=== PATIENT | male | born 1940 | race Caucasian/White ===

== ENCOUNTER → 2016-09-19 | Outpatient (CLI) | payer MEDICARE, MEDICAID ==
[~2016-09-19] MED LIST: ALBU8.5H IH; ASPI-1061 PO; BECL8.7A6 IH; CELE100 PO; CEPH500 PO; CLON2 PO; CLOP75 PO; GABA-533 PO; IPRAHFA IH; OXYB5 PO; SANTO TP
[2016-09-19 09:24] VITALS: BP 116/68
== END | disposition home or self-care (01) ==
LOC: HBOWC 08:19
PROVIDERS: ATTEND Emergency Medicine
DX: L97.429 Non-pressure chronic ulcer of left heel and midfoot with unspecified severity (principal); I77.2 Rupture of artery; I73.9 Peripheral vascular disease, unspecified

== ENCOUNTER → 2016-10-11 | Outpatient (CLI) | payer MEDICARE, MEDICAID ==
[2016-10-11 09:03] VITALS: BP 98/61
== END | disposition home or self-care (01) ==
LOC: HBOWC 08:00
PROVIDERS: ATTEND Emergency Medicine
DX: I70.244 Atherosclerosis of native arteries of left leg with ulceration of heel and midfoot (principal); L89.624 Pressure ulcer of left heel, stage 4; I73.9 Peripheral vascular disease, unspecified; B35.1 Tinea unguium; Z72.89 Other problems related to lifestyle; F17.210 Nicotine dependence, cigarettes, uncomplicated
CPT/HCPCS: 97597

== ENCOUNTER → 2016-10-24 | Outpatient (CLI) | payer MEDICARE, MEDICAID ==
[~2016-10-24] MED LIST changes: -CEPH500 PO; -SANTO TP
[2016-10-24 09:14] VITALS: BP 120/65
== END | disposition home or self-care (01) ==
LOC: HBOWC 08:49
PROVIDERS: ATTEND Emergency Medicine
DX: L89.624 Pressure ulcer of left heel, stage 4 (principal); I73.9 Peripheral vascular disease, unspecified; B35.1 Tinea unguium; I70.244 Atherosclerosis of native arteries of left leg with ulceration of heel and midfoot; F17.210 Nicotine dependence, cigarettes, uncomplicated; I77.2 Rupture of artery; Z72.89 Other problems related to lifestyle
CPT/HCPCS: 97597

== ENCOUNTER → 2016-11-07 | Outpatient (CLI) | payer MEDICARE, MEDICAID ==
[2016-11-07 09:16] VITALS: BP 109/56
== END | disposition home or self-care (01) ==
LOC: HBOWC 08:13
PROVIDERS: ATTEND Emergency Medicine Undersea and Hyperbaric Medicine
DX: L89.624 Pressure ulcer of left heel, stage 4 (principal); I73.9 Peripheral vascular disease, unspecified; Z72.89 Other problems related to lifestyle; B35.1 Tinea unguium; I48.91 Unspecified atrial fibrillation; F17.210 Nicotine dependence, cigarettes, uncomplicated; L84 Corns and callosities
CPT/HCPCS: 11056; 97597

== ENCOUNTER → 2016-11-21 | Outpatient (CLI) | payer MEDICARE, MEDICAID ==
[2016-11-21 08:17] VITALS: BP 121/67
== END | disposition home or self-care (01) ==
LOC: HBOWC 07:28
PROVIDERS: ATTEND Emergency Medicine
DX: L89.624 Pressure ulcer of left heel, stage 4 (principal); F17.210 Nicotine dependence, cigarettes, uncomplicated; I73.9 Peripheral vascular disease, unspecified; I48.91 Unspecified atrial fibrillation; B35.1 Tinea unguium; L84 Corns and callosities; Z72.89 Other problems related to lifestyle
CPT/HCPCS: 11721; 97597

== ENCOUNTER → 2016-12-05 | Outpatient (CLI) | payer MEDICARE, MEDICAID ==
[2016-12-05 09:19] VITALS: BP 107/59
== END | disposition home or self-care (01) ==
LOC: HBOWC 08:51
PROVIDERS: ATTEND Emergency Medicine
DX: I70.244 Atherosclerosis of native arteries of left leg with ulceration of heel and midfoot (principal); L89.624 Pressure ulcer of left heel, stage 4; I48.91 Unspecified atrial fibrillation; B35.1 Tinea unguium; L84 Corns and callosities; F17.210 Nicotine dependence, cigarettes, uncomplicated; Z72.89 Other problems related to lifestyle
CPT/HCPCS: 97597

== ENCOUNTER → 2016-12-19 | Outpatient (CLI) | payer MEDICARE, MEDICAID ==
[2016-12-19 09:10] VITALS: BP 108/60
== END | disposition home or self-care (01) ==
LOC: HBOWC 08:22
PROVIDERS: ATTEND Emergency Medicine
DX: L89.623 Pressure ulcer of left heel, stage 3 (principal); I73.9 Peripheral vascular disease, unspecified; L57.0 Actinic keratosis; L84 Corns and callosities; B36.8 Other specified superficial mycoses; F17.210 Nicotine dependence, cigarettes, uncomplicated; Z79.02 Long term (current) use of antithrombotics/antiplatelets
CPT/HCPCS: 97597

== ENCOUNTER → 2017-01-02 | Outpatient (CLI) | payer MEDICARE, MEDICAID ==
[2017-01-02 08:57] VITALS: BP 104/57
== END | disposition home or self-care (01) ==
LOC: HBOWC 08:09
PROVIDERS: ATTEND Emergency Medicine
DX: L89.624 Pressure ulcer of left heel, stage 4 (principal); B35.1 Tinea unguium; I73.9 Peripheral vascular disease, unspecified; I48.91 Unspecified atrial fibrillation; F17.210 Nicotine dependence, cigarettes, uncomplicated; Z72.89 Other problems related to lifestyle
CPT/HCPCS: 11721; 97597

== ENCOUNTER → 2017-01-16 | Outpatient (CLI) | payer MEDICARE, MEDICAID ==
[2017-01-16 09:53] VITALS: BP 144/79
== END | disposition home or self-care (01) ==
LOC: HBOWC 08:37
PROVIDERS: ATTEND Emergency Medicine
DX: L89.624 Pressure ulcer of left heel, stage 4 (principal); I73.9 Peripheral vascular disease, unspecified; I48.91 Unspecified atrial fibrillation; B35.1 Tinea unguium; L84 Corns and callosities; F17.210 Nicotine dependence, cigarettes, uncomplicated; Z72.89 Other problems related to lifestyle
CPT/HCPCS: 97597

== ENCOUNTER → 2017-01-30 | Outpatient (CLI) | payer MEDICARE, MEDICAID ==
[2017-01-30 11:41] VITALS: BP 137/65
== END | disposition home or self-care (01) ==
LOC: HBOWC 10:53
PROVIDERS: ATTEND Emergency Medicine
DX: L89.624 Pressure ulcer of left heel, stage 4 (principal); I73.9 Peripheral vascular disease, unspecified; B35.1 Tinea unguium; I48.91 Unspecified atrial fibrillation; L84 Corns and callosities; F17.210 Nicotine dependence, cigarettes, uncomplicated; Z72.89 Other problems related to lifestyle
CPT/HCPCS: 97597

== ENCOUNTER → 2017-02-13 | Outpatient (CLI) | payer MEDICARE, MEDICAID ==
[2017-02-13 10:00] VITALS: BP 92/57
[2017-02-13 10:10] VITALS: BP 93/54
[2017-02-13 10:40] VITALS: BP 91/54
== END | disposition home or self-care (01) ==
LOC: HBOWC 09:04
PROVIDERS: ATTEND Emergency Medicine Undersea and Hyperbaric Medicine
DX: L89.624 Pressure ulcer of left heel, stage 4 (principal); I73.9 Peripheral vascular disease, unspecified; I48.91 Unspecified atrial fibrillation; B35.1 Tinea unguium; F17.210 Nicotine dependence, cigarettes, uncomplicated; Z72.89 Other problems related to lifestyle
CPT/HCPCS: 97597

== ENCOUNTER → 2017-02-27 | Outpatient (CLI) | payer MEDICARE, MEDICAID ==
[~2017-02-27] MED LIST changes: +LIDOCAINE HCL 2% 5 ML JELLY TP ONE
[2017-02-27 10:00] VITALS: BP 129/71
== END | disposition home or self-care (01) ==
LOC: HBOWC 09:26
PROVIDERS: ATTEND Emergency Medicine
DX: L89.624 Pressure ulcer of left heel, stage 4 (principal); I70.244 Atherosclerosis of native arteries of left leg with ulceration of heel and midfoot; L97.422 Non-pressure chronic ulcer of left heel and midfoot with fat layer exposed; I48.91 Unspecified atrial fibrillation; B35.1 Tinea unguium; L84 Corns and callosities; Z72.89 Other problems related to lifestyle; F17.210 Nicotine dependence, cigarettes, uncomplicated
CPT/HCPCS: 97597

== ENCOUNTER → 2017-03-13 | Outpatient (CLI) | payer MEDICARE, MEDICAID ==
[~2017-03-13] MED LIST changes: -LIDOCAINE HCL 2% 5 ML JELLY TP ONE
[2017-03-13 09:52] VITALS: BP 118/77
== END | disposition home or self-care (01) ==
LOC: HBOWC 09:19
PROVIDERS: ATTEND Emergency Medicine Undersea and Hyperbaric Medicine
DX: I70.244 Atherosclerosis of native arteries of left leg with ulceration of heel and midfoot (principal); L89.624 Pressure ulcer of left heel, stage 4; L84 Corns and callosities; I73.9 Peripheral vascular disease, unspecified; B35.1 Tinea unguium; I48.91 Unspecified atrial fibrillation; F17.210 Nicotine dependence, cigarettes, uncomplicated; Z72.89 Other problems related to lifestyle
CPT/HCPCS: 97597

== ENCOUNTER → 2017-03-27 | Outpatient (CLI) | payer MEDICARE, MEDICAID ==
[2017-03-27 10:29] VITALS: BP 111/50
== END | disposition home or self-care (01) ==
LOC: HBOWC 09:13
PROVIDERS: ATTEND Emergency Medicine
DX: L89.624 Pressure ulcer of left heel, stage 4 (principal); I73.9 Peripheral vascular disease, unspecified; I48.91 Unspecified atrial fibrillation; B35.1 Tinea unguium; L84 Corns and callosities; F17.210 Nicotine dependence, cigarettes, uncomplicated; Z72.89 Other problems related to lifestyle
CPT/HCPCS: 11720; 97597

== ENCOUNTER → 2017-04-10 | Outpatient (CLI) | payer MEDICARE, MEDICAID ==
[2017-04-10 10:18] VITALS: BP 154/78
== END | disposition home or self-care (01) ==
LOC: HBOWC 09:25
PROVIDERS: ATTEND Emergency Medicine
DX: I70.244 Atherosclerosis of native arteries of left leg with ulceration of heel and midfoot (principal); L89.624 Pressure ulcer of left heel, stage 4; L84 Corns and callosities; I73.9 Peripheral vascular disease, unspecified; B35.1 Tinea unguium; I48.91 Unspecified atrial fibrillation; F17.210 Nicotine dependence, cigarettes, uncomplicated; Z72.89 Other problems related to lifestyle
CPT/HCPCS: 97597

== ENCOUNTER → 2017-04-24 | Outpatient (CLI) | payer MEDICARE, MEDICAID ==
[2017-04-24 10:15] VITALS: BP 149/73
== END | disposition home or self-care (01) ==
LOC: HBOWC 08:55
PROVIDERS: ATTEND Emergency Medicine
DX: I70.244 Atherosclerosis of native arteries of left leg with ulceration of heel and midfoot (principal); L89.624 Pressure ulcer of left heel, stage 4; L84 Corns and callosities; I48.91 Unspecified atrial fibrillation; B35.1 Tinea unguium; F17.210 Nicotine dependence, cigarettes, uncomplicated; I73.9 Peripheral vascular disease, unspecified; Z72.89 Other problems related to lifestyle
CPT/HCPCS: 97597

== ENCOUNTER → 2017-05-08 | Outpatient (CLI) | payer MEDICARE, MEDICAID ==
[2017-05-08 10:29] VITALS: BP 123/73
== END | disposition home or self-care (01) ==
LOC: HBOWC 09:35
PROVIDERS: ATTEND Surgery Plastic and Reconstructive Surgery
DX: L89.624 Pressure ulcer of left heel, stage 4 (principal); I25.10 Atherosclerotic heart disease of native coronary artery without angina pectoris; L84 Corns and callosities; I73.9 Peripheral vascular disease, unspecified; B35.1 Tinea unguium; I48.91 Unspecified atrial fibrillation; F17.200 Nicotine dependence, unspecified, uncomplicated
CPT/HCPCS: 97597

== ENCOUNTER → 2017-05-15 | Outpatient (CLI) | payer MEDICARE, MEDICAID ==
[~2017-05-15] MED LIST changes: -ALBU8.5H IH; +ALBU8.5H8 IH; -ASPI-1061 PO; +ASPI81TA33 PO
[2017-05-15 09:41] VITALS: BP 105/105
== END | disposition home or self-care (01) ==
LOC: HBOWC 09:10
PROVIDERS: ATTEND Surgery Plastic and Reconstructive Surgery
DX: L89.624 Pressure ulcer of left heel, stage 4 (principal); I25.10 Atherosclerotic heart disease of native coronary artery without angina pectoris; L84 Corns and callosities; I73.9 Peripheral vascular disease, unspecified; B35.1 Tinea unguium; I48.91 Unspecified atrial fibrillation; F17.210 Nicotine dependence, cigarettes, uncomplicated; Z72.89 Other problems related to lifestyle

== ENCOUNTER → 2017-06-15 | Outpatient (CLI) | payer MEDICARE, MEDICAID ==
[2017-06-15 11:20] VITALS: BP 123/60
== END | disposition home or self-care (01) ==
LOC: HBOWC 10:54
PROVIDERS: ATTEND Podiatrist
DX: L89.624 Pressure ulcer of left heel, stage 4 (principal); L84 Corns and callosities; B35.1 Tinea unguium; L60.3 Nail dystrophy; I25.10 Atherosclerotic heart disease of native coronary artery without angina pectoris; I73.9 Peripheral vascular disease, unspecified; I48.91 Unspecified atrial fibrillation; M24.572 Contracture, left ankle; F17.200 Nicotine dependence, unspecified, uncomplicated; Z72.89 Other problems related to lifestyle